=== PATIENT | male | born 1955 | race Caucasian/White ===

== ENCOUNTER → 2023-12-08 12:36 | Outpatient (REF) | payer MEDICARE, BC, SELFPAY ==
[2023-12-08 13:58] LABS: % Basophils 0.5 % (0-2); % Eosinophils 2.1 % (0-6); % Immature Granulocytes 0.2 % (0-0.5); % Lymphocytes 10.4 % (20.5-51.1); % Neutrophils 79.8 % (42.2-75.2); Absolute Basophils 0.1 10^3/uL (0-0.2); Absolute Eosinophils 0.2 10^3/uL (0-0.7); Absolute Monocytes 0.7 10^3/uL (0.1-0.6); Absolute Neutrophils 7.4 10^3/uL (1.4-6.5); Hematocrit 49.5 % (39.0-52.0); Hemoglobin 16.4 g/dL (13.0-18.0); Mean Corp Hgb Conc. 33.1 g/dL (33.0-37.0); Mean Corpuscular Hgb 29.4 pg (27.0-31.0); Mean Corpuscular Volume 88.9 fL (80.0-94.0); Mean Platelet Volume 11.5 fL (7.4-10.4); Nucleated Red Blood Cells % 0 % (-); Platelet Count 203 10^3/uL (130-400); Red Blood Cell Count 5.57 10^6/uL (4.70-6.10); Red Cell Dist. Width 13.5 % (11.5-14.5); White Blood Cell Count 9.2 10^3/uL (4.8-10.8)
[2023-12-08 14:17] LABS: Urine Protein 17 mg/dl (0-12)
[2023-12-08 15:43] LABS: Albumin 5.1 g/dl (3.5-5.0); Blood Urea Nitrogen 23 mg/dl (9-20); Calcium 10.2 mg/dl (8.4-10.2); Carbon Dioxide 27 mmol/L (22-30); Chloride 100 mmol/L (98-107); Glucose 77 mg/dl (70-99); Phosphorus 3.6 mg/dl (2.5-4.5); Potassium 5.7 mmol/L (3.5-5.1); Sodium 139 mmol/L (135-145); eGFR > 60.00
[2023-12-09 13:40] LABS: Intact PTH 73.7 pg/ml (13.6-85.8)
== END ==
LOC: REG 12:36
PROVIDERS: ATTENDING PHYSICIAN Internal Medicine; FAMILY PHYSICIAN Internal Medicine Pulmonary Disease
DX: Z87.442 Personal history of urinary calculi (principal); N18.31 Chronic kidney disease, stage 3a; R80.9 Proteinuria, unspecified; R06.02 Shortness of breath
CPT/HCPCS: 36415; 71046; 80069; 82570; 83970; 84156; 85025

== ENCOUNTER 2024-02-14 12:07 | Emergency (ER) | payer MEDICARE, BC, SELFPAY ==
[2024-02-14 12:10] VITALS: BP 157/80
[2024-02-14 12:48] VITALS: BP 127/76
[2024-02-14 12:50] LABS: % Basophils 0.6 % (0-2); % Eosinophils 1.8 % (0-6); % Immature Granulocytes 0.1 % (0-0.5); % Monocytes 8.2 % (1.7-9.3); % Neutrophils 78.3 % (42.2-75.2); Absolute Basophils 0.1 10^3/uL (0-0.2); Absolute Eosinophils 0.2 10^3/uL (0-0.7); Absolute Monocytes 0.7 10^3/uL (0.1-0.6); Absolute Neutrophils 6.8 10^3/uL (1.4-6.5); Hematocrit 43.8 % (39.0-52.0); Hemoglobin 14.4 g/dL (13.0-18.0); Mean Corp Hgb Conc. 32.9 g/dL (33.0-37.0); Mean Corpuscular Hgb 28.6 pg (27.0-31.0); Mean Corpuscular Volume 86.9 fL (80.0-94.0); Mean Platelet Volume 11.2 fL (7.4-10.4); Nucleated Red Blood Cells % 0 % (-); Platelet Count 179 10^3/uL (130-400); Red Blood Cell Count 5.04 10^6/uL (4.70-6.10); Red Cell Dist. Width 13.3 % (11.5-14.5); White Blood Cell Count 8.7 10^3/uL (4.8-10.8)
[2024-02-14 13:00] VITALS: BP 118/68
--- NOTE | 2024-02-14 13:00 | EDRN ---
Dr. Tompkins in room w/pt at this time.
[2024-02-14 13:09] LABS: ALT (SGPT) 38 U/L (0-50); AST (SGOT) 54 U/L (17-59); Albumin 4.1 g/dl (3.5-5.0); Alkaline Phosphatase 61 U/L (38-126); Blood Urea Nitrogen 28 mg/dl (9-20); Calcium 9.1 mg/dl (8.4-10.2); Carbon Dioxide 26 mmol/L (22-30); Chloride 104 mmol/L (98-107); Glucose 81 mg/dl (70-99); Potassium 4.5 mmol/L (3.5-5.1); Sodium 140 mmol/L (135-145); Total Bilirubin 1.2 mg/dl (0.2-1.3); eGFR 50.71
[2024-02-14 13:17] VITALS: BMI 22.2
[2024-02-14 13:19] LABS: Troponin I < 0.012 ng/ml
[2024-02-14 14:00] VITALS: BP 121/68
--- NOTE | 2024-02-14 14:48 | ED.CVA ---
History of Present Illness
General
Chief Complaint: CVA/TIA Symptoms
Source: patient
Time Seen by Provider: 02/14/24 12:50
Onset of Stroke Symptoms
Onset of symptoms known: No
Time pt last seen normal is known: No
History of Present Illness
History of Present Illness:
68-year-old male presents to the emergency room for evaluation after he had an episode of double vision. Patient was on the phone talking with a relative when he noted double vision. He was looking at a electrical outlet when he noted that there
were 2 images. 1 on top the other. His vision was normal with 1 eye but he noted the double vision when looking with both eyes. Symptoms lasted for a couple minutes and went away on its own. No other associated symptoms. Patient feels fine now.
He ran 3 miles today.
Past History
Past History
ED Past Medical History: Renal failure (CKD) and Other (bilateral hydronephrosis, Chron's disease, stroke 04/2020, nephrolithiasis, erectile dysfunction)
ED Past Surgical History: Bowel resection (small bowel 1989, 2009) and Urological (TURP 12/2021, stent for nephrolithiasis)
Social History
Tobacco: Non-smoker
Alcohol: None
Drug: Marijuana
Personal:
Living: with family
Family History
Family History: Other (Myasthenia gravis in mother)
Phy Exam
Physical Exam
Physical Exam:
General: Awake, Alert, Oriented X3. No acute distress.
Vitals: unremarkable
Head: Atraumatic
Eyes: Pupils equal, EOMI
Throat: Airway intact, no exudates
Neck: Trachea midline
Lungs: Clear and equal b/l
Heart: Regular rate, no murmurs
Abd: Soft, Nontender, No pulsatile mass
Neuro: Cranial nerves intact, muscle strength equal bilaterally, cerebellar exam normal
Skin: Warm, dry, no rash
Extremities: pulses equal b/l, no edema
Course
Orders/Labs/Results
Orders:
Orders
02/14/24
Electrocardiogram (*1) Stat
Comment: DONE EMR
02/14/24 12:13
CT Head W/o Iv Contrast Urgent
Comment:
Reason For Exam: double vision lasted two minutes resolved at prese
02/14/24 12:15
Electrocardiogram (*1) Urgent
Reason for Study: TIA/Stroke
02/14/24 12:16
EKG- Treatment ONCE
02/14/24 12:40
Complete Blood Count/With Diff Urgent
Comprehensive Metabolic Panel Urgent
Troponin I Urgent
Abnormal Lab Results
02/14/24
12:40
MCHC 32.9 L g/dL
(33.0-37.0)
MPV 11.2 H fL
(7.4-10.4)
Absolute Neuts (auto) 6.8 H 10^3/uL
(1.4-6.5)
Absolute Lymphs (auto) 1.0 L 10^3/uL
(1.2-3.4)
Absolute Monos (auto) 0.7 H 10^3/uL
(0.1-0.6)
Neutrophils % 78.3 H %
(42.2-75.2)
Lymphocytes % 11.0 L %
(20.5-51.1)
BUN 28 H mg/dl
(9-20)
Creatinine 1.5 H mg/dL
(0.7-1.3)
02/14/24 12:40
02/14/24 12:40
Vital Signs
Initial and Last Documented VS:
Initial Vital Signs
Temp Pulse Resp BP Pulse Ox
98.0 F 53 16 157/80 98
02/14/24 12:10 02/14/24 12:10 02/14/24 12:10 02/14/24 12:10 02/14/24 12:10
Last Documented Vital Signs
Temp Pulse Resp BP Pulse Ox
98.0 F 44 17 121/68 96
02/14/24 12:10 02/14/24 14:15 02/14/24 14:15 02/14/24 14:00 02/14/24 14:15
MDM/Problems Addressed
Differential Diagnosis Includes:
Pt had relatively short episode of verticle diplopia. No symptoms now. Pt concerned this maybe a prodrome of a stroke. No other neuro symptoms. Neurology consult obtained. No change in treatment recommended. Will have pt f/u with
ophthalmology.
*EKG
Interpreted by ED Provider?: Yes
Interpretation: abnormal
Heart Rate: 49
Rate: bradycardiac
Rhythm: sinus
[place]: normal axis
Interval: normal interval
QRS Pattern: normal QRS
Ischemia: no ischemia
*Labor And Delivery Nurse Interpretation
Rate: bradycardiac
Interpretation: abnormal
Rhythm: sinus
*Critical Care Note
Total Time (30-74mins, 75-104mins- exclusive of procedures): Not Applicable
ED Attending Note
-
Portions of this chart may have been created with voice recognition software.� Occasional wrong word or��sound alike� substitutions may have occurred due to the inherent limitations of voice recognition software.
Discharge Plan
Departure
Patient Disposition: Home (Routine Discharge)
Date of Disposition: 02/14/24
Time of Disposition: 14:48
Patient with high blood pressure during this ER visit?: No
Condition: Good
Discharge Problem:
Diplopia
Instructions: Double Vision (DC)
Prescriptions:
No Action
opium tincture 10 mg/mL (morphine) Tincture
0.6 ml PO QID
Patient Comments:
02/14/24: last filled 01/07/24 at [facility] pharmacy.
fluticasone propion-salmeterol [Wixela Inhub] 250-50 mcg/dose Blister With Device
1 inh INHALATION R DAILY
atorvastatin 10 mg Tablet
5 mg PO DAILY
metoprolol succinate 50 mg Tablet Extended Release 24 Hr
100 mg PO DAILY
Theragen Tablet
1 tab PO DAILY
sodium citrate-citric acid 500-334 mg/5 mL Solution
30 ml PO TID
losartan 25 mg Tablet
25 mg PO DAILY
aspirin 81 mg Tablet,Chewable
81 mg PO DAILY
montelukast 10 mg Tablet
10 mg PO HS
tadalafil 20 mg Tablet
20 mg PO DAILYPRN PRN (Reason: ed)
testosterone 20.25 mg/1.25 gram (1.62 %) Gel In Metered-Dose Pump
2 pump TOPICAL DAILY
Referrals:
Soren Cardenas MD [Active] -
Samira Garcia MD [Family Provider] -
Activity Restrictions/Additional Instructions:
Please follow up with an eye doctor. I have provided the contact information for Dr. Cardenas if you do not have one. Return to the ER if you have return of double vision returns and is persistent or you have any other neuro symptoms.
Interventions
Interventions:
*Risk Screen - Suicide Last Done: 02/14/24 13:20
*General Assessment Last Done: 02/14/24 13:17
*Neglect/Abuse Screening Last Done: 02/14/24 13:20
ED- Fall Risk Assessment Last Done: 02/14/24 13:20
*ED COVID-19 Vaccine History Last Done: 02/14/24 13:17
ED- Pulmonary Assessment Last Done: 02/14/24 13:20
ED- Neurological Assessment Last Done: 02/14/24 13:20
ED- Cardiac Assessment Last Done: 02/14/24 13:20
ED Swallowing Screen Last Done: 02/14/24 13:20
Discharge Date and Time
Print Language: ARABIC
[2024-02-14 15:27] VITALS: BP 134/71
== END 2024-02-14 15:27 | disposition home or self-care (01) ==
LOC: EMR 12:07
PROVIDERS: EMERGENCY PHYSICIAN Emergency Medicine; FAMILY PHYSICIAN Internal Medicine
DX: H53.2 Diplopia (principal); N18.9 Chronic kidney disease, unspecified; K50.90 Crohn's disease, unspecified, without complications; N52.9 Male erectile dysfunction, unspecified; Z86.73 Personal history of transient ischemic attack (TIA), and cerebral infarction without residual deficits; Z87.442 Personal history of urinary calculi; Z90.79 Acquired absence of other genital organ(s)
CPT/HCPCS: 99284; 70450; 80053; 84484; 85025; 93005

== ENCOUNTER → 2024-02-15 10:11 | Outpatient (REF) | payer MEDICARE, BC, SELFPAY | LOC: HWRAD 10:11 | PROVIDERS: ATTENDING PHYSICIAN Internal Medicine; FAMILY PHYSICIAN Internal Medicine | DX: N18.31 Chronic kidney disease, stage 3a (principal); Z87.442 Personal history of urinary calculi | CPT/HCPCS: 76770 ==

== ENCOUNTER → 2025-01-24 12:10 | Outpatient (REF) | payer MEDICARE, BC, SELFPAY | LOC: HWRAD 12:10 | PROVIDERS: ATTENDING PHYSICIAN Internal Medicine; FAMILY PHYSICIAN Internal Medicine | DX: N18.31 Chronic kidney disease, stage 3a (principal); Z87.442 Personal history of urinary calculi | CPT/HCPCS: 76770 ==